=== PATIENT | female | born 1955 | race Caucasian/White ===

== ENCOUNTER 2018-02-11 15:04 | Emergency (ER) | payer OTHER, SELFPAY ==
[2018-02-11 15:09] VITALS: BP 139/82; PULSE 69; RESP 18; TEMP 37.2; O2SAT 96; BMI 17.6
--- NOTE | 2018-02-11 15:15 | DI.RAD.S_ITS ---
PROCEDURE: XR FOOT RT MIN 3V INDICATIONS: rolled right foot TECHNIQUE: 3 views of the foot were acquired. COMPARISON: None. FINDINGS: There is a distal right fibular fracture with overlying soft tissue swelling. There is a small osseous fragment superior/cranial to the anterior talus. There is a small ankle joint effusion. IMPRESSION: #1. Acute distal right fibular fracture with overlying soft tissue swelling. #2. Small ankle joint effusion, concerning for ligamentous injury. #3. Small osseous fragment superior/cranial to the anterior right talus, which may represent a small avulsion fracture. Dictated by: Kvng Hernández M.D. on 02/11/2018 at 15:46 Approved by: Kvng Hernández M.D. on 02/11/2018 at 15:48
--- NOTE | 2018-02-11 15:15 | DI.RAD.S_ITS ---
PROCEDURE: XR ANKLE RT MIN 3V INDICATIONS: rolled right foot TECHNIQUE: 3 views of the ankle were acquired. COMPARISON: None. FINDINGS: There is a transverse distal right fibular metaphysis/lateral malleolus fracture without significant angulation or displacement. There is overlying soft tissue swelling. Ankle mortise remains symmetric. There is a small ankle joint effusion. Small osseous fragment superior/cranial to the anterior talus concerning for avulsion fracture. IMPRESSION: #1. Acute right distal fibular/lateral malleolus fracture with overlying soft tissue swelling. #2. Small ankle joint effusion, concerning for ligamentous injury. #3. Small osseous fragment superior/cranial to the anterior talus concerning for avulsion fracture. Dictated by: Kvng Hernández M.D. on 02/11/2018 at 15:41 Approved by: Kvng Hernández M.D. on 02/11/2018 at 15:44
[2018-02-11 16:11] VITALS: BP 136/71; PULSE 55; RESP 16; TEMP 36.4; O2SAT 95
--- NOTE | 2018-02-11 16:51 | ED.LOWEXIN ---
HPI - Extremity Injury (Lower) <IGNACIO Lambert - Last Filed: 02/11/18 18:33> General Chief Complaint: Extremity Injury, Lower Stated Complaint: TWISTED RIGHT ANKLE ON STAIRS Time Seen by Provider: 02/11/18 16:14 Source: patient and family Mode of arrival: wheelchair Limitations: no limitations History of Present Illness HPI Narrative: Patient stated she was going down a set of stairs at approximately 1:30 p.m. she states she missed the last step and rolled her right ankle inwards. She denies falling. She states she caught herself on the banister. She did not hit her head her neck or her back. She complains of isolated right ankle pain stating it is on the ?outside of her ankle. She denies numbness or tingling. She does complain of bruising. Related Data Allergies Allergy/AdvReac Type Severity Reaction Status Date / Time No Known Drug Allergies Allergy Verified 02/11/18 15:14 Review of Systems <IGNACIO Lambert - Last Filed: 02/11/18 18:33> Review of Systems GENERAL: Denies chills, fatigue, malaise, fever, sweats. HEENT: Denies sinus pain, ear pain, sore throat, difficulty swallowing, dizziness. RESPIRATORY: Denies dyspnea, cough, wheezing, hemoptysis, sputum. CARDIOVASCULAR: Denies chest pain, palpitations, orthopnea, edema, GASTROINTESTINAL: Denies nausea, vomiting, abdominal pain, diarrhea, constipation, melena. : Denies dysuria, frequency, incontinence, hematuria, urinary retention. MUSCULOSKELETAL: See HPI SKIN: See HPI NEUROLOGIC: Denies weakness, headache, numbness, change in speech, confusion, seizures, incoordination. PSYCHIATRIC: No concerning psychosocial issues. 12 point review of systems is negative except for those stated above Exam <IGNACIO Lambert - Last Filed: 02/11/18 18:33> Narrative Exam Narrative: GENERAL: Elderly female lying in bed. HEAD: Atraumatic. Normocephalic. No temporal or scalp tenderness. EYES: Pupils equal round and reactive. Extraocular motions intact. No scleral icterus. No injection or drainage. ENT: Nose without bleeding, purulent drainage or septal hematoma. Throat without erythema, tonsillar hypertrophy or exudate. Uvula midline. Airway patent. NECK: Trachea midline. No JVD or lymphadenopathy. Supple, nontender, no meningeal signs. CARDIOVASCULAR: Regular rate and rhythm without murmurs, gallops, or rubs. RESPIRATORY: Clear to auscultation. Breath sounds equal bilaterally. No wheezes, rales, or rhonchi. GASTROINTESTINAL: Abdomen soft, non-tender, nondistended. No hepato-splenomegaly, or palpable masses. No guarding. EXTREMITIES: Decreased range of motion right ankle all castle. Pain on palpation lateral aspect of right ankle around lateral malleolus. Positive pedal pulses right ankle. Patient is able to move all 5 toes. BACK: Nontender without deformity or crepitance. No flank tenderness. NEURO: AOx3. SKIN: Ecchymosis and swelling noted lateral malleolus right ankle. Initial Vital Signs Initial Vital Signs: Vital Signs Temperature 99.0 F 02/11/18 15:09 Pulse Rate 69 02/11/18 15:09 Respiratory Rate 18 02/11/18 15:09 Blood Pressure 139/82 H 02/11/18 15:09 Pulse Oximetry 96 02/11/18 15:09 <Jason Piña DO - Last Filed: 02/11/18 18:34> Initial Vital Signs Initial Vital Signs: Vital Signs Temperature 99.0 F 02/11/18 15:09 Pulse Rate 69 02/11/18 15:09 Respiratory Rate 18 02/11/18 15:09 Blood Pressure 139/82 H 02/11/18 15:09 Pulse Oximetry 96 02/11/18 15:09 Course <ANIRUDH Lambert-BC - Last Filed: 02/11/18 18:33> Orders Ordered: ED Orders 02/11/18 15:15 XR ankle RT min 3V Stat XR foot RT min 3V Stat Consultations Consultation #1: Spoke with Dr. Mcgill from a [facility]. She recommended a splint or a walking boot with crutches and to minimize weight-bearing. Encouraged rice and elevation. Discussed follow up with Orthopedics in approximately 1 week. Given that patient is traveling, encouraged follow-up at home but placed referral to [facility] in case they are still in town. Time: 17:00 Vital Signs - 8 hr 02/11/18 15:09 02/11/18 16:11 Temperature 99.0 F 97.5 F L Pulse Rate 69 55 L Respiratory Rate 18 16 Blood Pressure 139/82 H Blood Pressure [Left Arm] 136/71 H Pulse Oximetry 96 95 <Jason Piña DO - Last Filed: 02/11/18 18:34> Orders Ordered: ED Orders 02/11/18 15:15 XR ankle RT min 3V Stat XR foot RT min 3V Stat Vital Signs - 8 hr 02/11/18 15:09 02/11/18 16:11 Temperature 99.0 F 97.5 F L Pulse Rate 69 55 L Respiratory Rate 18 16 Blood Pressure 139/82 H Blood Pressure [Left Arm] 136/71 H Pulse Oximetry 96 95 MDM - Extremity Injury (Lower) <IGNACIO Lambert - Last Filed: 02/11/18 18:33> Imaging Data right foot xray: Radiologist's impression: View Report History [address] [address] XRay Report Signed Patient: MICHELLE HDZ MR#: [id number] : 1955 Acct:[id number] Age/Sex: 62 / F Date of Service: 02/11/18 Loc: ED Accession Number: [id number] Procedure: XR foot RT min 3V Ordering Provider: Samantha Garcia PROCEDURE: XR FOOT RT MIN 3V INDICATIONS: rolled right foot TECHNIQUE: 3 views of the foot were acquired. COMPARISON: None. FINDINGS: There is a distal right fibular fracture with overlying soft tissue swelling. There is a small osseous fragment superior/cranial to the anterior talus. There is a small ankle joint effusion. IMPRESSION: #1. Acute distal right fibular fracture with overlying soft tissue swelling. #2. Small ankle joint effusion, concerning for ligamentous injury. #3. Small osseous fragment superior/cranial to the anterior right talus, which may represent a small avulsion fracture. Dictated by: Kvng Hernández M.D. on 02/11/2018 at 15:46 Approved by: Kvng Hernández M.D. on 02/11/2018 at 15:48 right ankle xray: Radiologist's impression: View Report History [address] [address] XRay Report Signed Patient: MICHELLE HDZ MR#: [id number] : 1955 Acct:[id number] Age/Sex: 62 / F Date of Service: 02/11/18 Loc: ED Accession Number: [id number] Procedure: XR ankle RT min 3V Ordering Provider: Samantha Garcia PROCEDURE: XR ANKLE RT MIN 3V INDICATIONS: rolled right foot TECHNIQUE: 3 views of the ankle were acquired. COMPARISON: None. FINDINGS: There is a transverse distal right fibular metaphysis/lateral malleolus fracture without significant angulation or displacement. There is overlying soft tissue swelling. Ankle mortise remains symmetric. There is a small ankle joint effusion. Small osseous fragment superior/cranial to the anterior talus concerning for avulsion fracture. IMPRESSION: #1. Acute right distal fibular/lateral malleolus fracture with overlying soft tissue swelling. #2. Small ankle joint effusion, concerning for ligamentous injury. #3. Small osseous fragment superior/cranial to the anterior talus concerning for avulsion fracture. Dictated by: Kvng Hernández M.D. on 02/11/2018 at 15:41 Approved by: Kvng Hernández M.D. on 02/11/2018 at 15:44 MDM Narrative Medical decision making narrative: X-ray illustrated right lateral malleolar fracture. Discussed x-rays with Dr. Mcgill from [facility] was kind enough to viewed the x-rays and provide recommendations. Patient declined pain medication while in the emergency department and declined pain medication prescription on discharge. I encouraged rest, ice elevation and [id number] medications as needed and able. Encouraged nonweightbearing and patient was placed in walking boot, but declined crutches as they already have access to some. Discussed follow up with Orthopedics in approximately 1 week and return visit if concerned about circulation with foot. Patient has been had no questions or concerns upon discharge. Discharge Plan Departure Patient Disposition: Home, Self-Care Clinical Impression: Ankle fracture, lateral malleolus, closed Discharge Date/Time: 02/11/18 17:30 Interventions: ED Discharge Assessment Last Done: 02/11/18 17:37 Instructions: How to Use Crutches, DI for Ankle Fracture, How To Perform RICE (Rest, Ice, Compress, Elevate) Activity Restrictions/Additional Instructions: You fractured your ankle. I would like you to rest, apply ice, take [id number] medications as needed and able. I would like you to stay nonweightbearing. I have given you crutches and also encouraged the use of a wheelchair need be. You can use year right foot to brace your cell for balance. I would like you to follow up with an orthopedist. I have given you a referral to [facility]. Please be sure that the food is not too tight and that you do not have cold toes. Follow up if you are concerned about her circulation. Referrals: [facility] [Outside] <Jason Piña DO - Last Filed: 02/11/18 18:34> Cosign ED Attending Ferdinandature Attestation: I was immediately available in the department for consultation. Documentation has been reviewed. I agree with assessment and plan.
--- NOTE | 2018-02-11 17:06 | ED_ITS ---
HPI - Extremity Injury (Lower) <IGNACIO Lambert - Last Filed: 02/11/18 18:33> General Chief Complaint: Extremity Injury, Lower Stated Complaint: TWISTED RIGHT ANKLE ON STAIRS Time Seen by Provider: 02/11/18 16:14 Source: patient and family Mode of arrival: wheelchair Limitations: no limitations History of Present Illness HPI Narrative: Patient stated she was going down a set of stairs at approximately 1:30 p.m. she states she missed the last step and rolled her right ankle inwards. She denies falling. She states she caught herself on the banister. She did not hit her head her neck or her back. She complains of isolated right ankle pain stating it is on the ?outside of her ankle. She denies numbness or tingling. She does complain of bruising. Related Data Allergies Allergy/AdvReac Type Severity Reaction Status Date / Time No Known Drug Allergies Allergy Verified 02/11/18 15:14 Review of Systems <IGNACIO Lambert - Last Filed: 02/11/18 18:33> Review of Systems GENERAL: Denies chills, fatigue, malaise, fever, sweats. HEENT: Denies sinus pain, ear pain, sore throat, difficulty swallowing, dizziness. RESPIRATORY: Denies dyspnea, cough, wheezing, hemoptysis, sputum. CARDIOVASCULAR: Denies chest pain, palpitations, orthopnea, edema, GASTROINTESTINAL: Denies nausea, vomiting, abdominal pain, diarrhea, constipation, melena. : Denies dysuria, frequency, incontinence, hematuria, urinary retention. MUSCULOSKELETAL: See HPI SKIN: See HPI NEUROLOGIC: Denies weakness, headache, numbness, change in speech, confusion, seizures, incoordination. PSYCHIATRIC: No concerning psychosocial issues. 12 point review of systems is negative except for those stated above Exam <IGNACIO Lambert - Last Filed: 02/11/18 18:33> Narrative Exam Narrative: GENERAL: Elderly female lying in bed. HEAD: Atraumatic. Normocephalic. No temporal or scalp tenderness. EYES: Pupils equal round and reactive. Extraocular motions intact. No scleral icterus. No injection or drainage. ENT: Nose without bleeding, purulent drainage or septal hematoma. Throat without erythema, tonsillar hypertrophy or exudate. Uvula midline. Airway patent. NECK: Trachea midline. No JVD or lymphadenopathy. Supple, nontender, no meningeal signs. CARDIOVASCULAR: Regular rate and rhythm without murmurs, gallops, or rubs. RESPIRATORY: Clear to auscultation. Breath sounds equal bilaterally. No wheezes , rales, or rhonchi. GASTROINTESTINAL: Abdomen soft, non-tender, nondistended. No hepato-splenomegaly , or palpable masses. No guarding. EXTREMITIES: Decreased range of motion right ankle all castle. Pain on palpation lateral aspect of right ankle around lateral malleolus. Positive pedal pulses right ankle. Patient is able to move all 5 toes. BACK: Nontender without deformity or crepitance. No flank tenderness. NEURO: AOx3. SKIN: Ecchymosis and swelling noted lateral malleolus right ankle. Initial Vital Signs Initial Vital Signs: Vital Signs Temperature 99.0 F 02/11/18 15:09 Pulse Rate 69 02/11/18 15:09 Respiratory Rate 18 02/11/18 15:09 Blood Pressure 139/82 H 02/11/18 15:09 Pulse Oximetry 96 02/11/18 15:09 <Jason Piña DO - Last Filed: 02/11/18 18:34> Initial Vital Signs Initial Vital Signs: Vital Signs Temperature 99.0 F 02/11/18 15:09 Pulse Rate 69 02/11/18 15:09 Respiratory Rate 18 02/11/18 15:09 Blood Pressure 139/82 H 02/11/18 15:09 Pulse Oximetry 96 02/11/18 15:09 Course <ANIRUDH Lambert-BC - Last Filed: 02/11/18 18:33> Orders Ordered: ED Orders 02/11/18 15:15 XR ankle RT min 3V Stat XR foot RT min 3V Stat Consultations Consultation #1: Spoke with Dr. Mcgill from a [facility]. She recommended a splint or a walking boot with crutches and to minimize weight- bearing. Encouraged rice and elevation. Discussed follow up with Orthopedics in approximately 1 week. Given that patient is traveling, encouraged follow-up at home but placed referral to [facility] in case they are still in town. Time: 17:00 Vital Signs - 8 hr 02/11/18 15:09 02/11/18 16:11 Temperature 99.0 F 97.5 F L Pulse Rate 69 55 L Respiratory Rate 18 16 Blood Pressure 139/82 H Blood Pressure [Left Arm] 136/71 H Pulse Oximetry 96 95 <Jason Piña DO - Last Filed: 02/11/18 18:34> Orders Ordered: ED Orders 02/11/18 15:15 XR ankle RT min 3V Stat XR foot RT min 3V Stat Vital Signs - 8 hr 02/11/18 15:09 02/11/18 16:11 Temperature 99.0 F 97.5 F L Pulse Rate 69 55 L Respiratory Rate 18 16 Blood Pressure 139/82 H Blood Pressure [Left Arm] 136/71 H Pulse Oximetry 96 95 MDM - Extremity Injury (Lower) <IGNACIO Lambert - Last Filed: 02/11/18 18:33> Imaging Data right foot xray: Radiologist's impression: View Report History [address] [address] XRay Report Signed Patient: MICHELLE HDZ MR#: [id number] : 1955 Acct:[id number] Age/Sex: 62 / F Date of Service: 02/11/18 Loc: ED Accession Number: [id number] Procedure: XR foot RT min 3V Ordering Provider: Samantha Garcia PROCEDURE: XR FOOT RT MIN 3V INDICATIONS: rolled right foot TECHNIQUE: 3 views of the foot were acquired. COMPARISON: None. FINDINGS: There is a distal right fibular fracture with overlying soft tissue swelling. There is a small osseous fragment superior/cranial to the anterior talus. There is a small ankle joint effusion. IMPRESSION: #1. Acute distal right fibular fracture with overlying soft tissue swelling. #2. Small ankle joint effusion, concerning for ligamentous injury. #3. Small osseous fragment superior/cranial to the anterior right talus, which may represent a small avulsion fracture. Dictated by: Kvng Hernández M.D. on 02/11/2018 at 15:46 Approved by: Kvng Hernández M.D. on 02/11/2018 at 15:48 right ankle xray: Radiologist's impression: View Report History [address] [address] XRay Report Signed Patient: MICHELLE HDZ MR#: [id number] : 1955 Acct:[id number] Age/Sex: 62 / F Date of Service: 02/11/18 Loc: ED Accession Number: [id number] Procedure: XR ankle RT min 3V Ordering Provider: Samantha Garcia PROCEDURE: XR ANKLE RT MIN 3V INDICATIONS: rolled right foot TECHNIQUE: 3 views of the ankle were acquired. COMPARISON: None. FINDINGS: There is a transverse distal right fibular metaphysis/lateral malleolus fracture without significant angulation or displacement. There is overlying soft tissue swelling. Ankle mortise remains symmetric. There is a small ankle joint effusion. Small osseous fragment superior/cranial to the anterior talus concerning for avulsion fracture. IMPRESSION: #1. Acute right distal fibular/lateral malleolus fracture with overlying soft tissue swelling. #2. Small ankle joint effusion, concerning for ligamentous injury. #3. Small osseous fragment superior/cranial to the anterior talus concerning for avulsion fracture. Dictated by: Kvng Hernández M.D. on 02/11/2018 at 15:41 Approved by: Kvng Hernández M.D. on 02/11/2018 at 15:44 MDM Narrative Medical decision making narrative: X-ray illustrated right lateral malleolar fracture. Discussed x-rays with Dr. Mcgill from [facility] was kind enough to viewed the x-rays and provide recommendations. Patient declined pain medication while in the emergency department and declined pain medication prescription on discharge. I encouraged rest, ice elevation and over- the-counter medications as needed and able. Encouraged nonweightbearing and patient was placed in walking boot, but declined crutches as they already have access to some. Discussed follow up with Orthopedics in approximately 1 week and return visit if concerned about circulation with foot. Patient has been had no questions or concerns upon discharge. Discharge Plan Departure Patient Disposition: Home, Self-Care Clinical Impression: Ankle fracture, lateral malleolus, closed Discharge Date/Time: 02/11/18 17:30 Interventions: ED Discharge Assessment Last Done: 02/11/18 17:37 Instructions: How to Use Crutches, DI for Ankle Fracture, How To Perform RICE ( Rest, Ice, Compress, Elevate) Activity Restrictions/Additional Instructions: You fractured your ankle. I would like you to rest, apply ice, take over-the- counter medications as needed and able. I would like you to stay nonweightbearing. I have given you crutches and also encouraged the use of a wheelchair need be. You can use year right foot to brace your cell for balance. I would like you to follow up with an orthopedist. I have given you a referral to [facility]. Please be sure that the food is not too tight and that you do not have cold toes. Follow up if you are concerned about her circulation. Referrals: [facility] [Outside] <Jason Piña DO - Last Filed: 02/11/18 18:34> Cosign ED Attending Ferdinandature Attestation: I was immediately available in the department for consultation. Documentation has been reviewed. I agree with assessment and plan.
--- NOTE | 2018-02-11 17:35 | PC.NURSE ---
patient states she has crutches and wheelchair available at home.
== END 2018-02-11 17:30 | disposition home or self-care (01) ==
PROVIDERS: Emergency Provider Nurse Practitioner Family
DX: S82.61XA Displaced fracture of lateral malleolus of right fibula, initial encounter for closed fracture (principal); W18.43XA Slipping, tripping and stumbling without falling due to stepping from one level to another, initial encounter
CPT/HCPCS: 29580; 73610; 73630; 99283